=== PATIENT | female | born 2000 | race Caucasian/White ===

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

== ENCOUNTER 2021-03-19 16:23 | Emergency (ER) | payer MEDICAID ==
[2021-03-19 16:43] VITALS: BP 131/76; PULSE 95
--- NOTE | 2021-03-19 17:09 | EDM.PDOC ---
<Jesu Quintana G - Last Filed: 03/19/21 17:04> ED HPI GENERAL MEDICAL PROBLEM - General Chief Complaint: General Stated Complaint: LOWGRADE FEVER, RASH, BOWEL ISSUES Time Seen by Provider: 03/19/21 16:50 Source of Information: Reports: Family, Old Records, RN. Denies: Patient History Limitations: Reports: No Limitations - History of Present Illness INITIAL COMMENTS - FREE TEXT/NARRATIVE: 21 yo female with CP presents with family for a low grade fever, a fine minimal rash, and minimal BM for the past week. Gets tube feeds and has not had any vomiting. Does have a pHx of UTI's. Family has tried glycerin supp lately with a small amt of hard stool. No results with Miralax lately. H Onset: Today Onset Date: 03/19/21 (fever) Duration: Hour(s):, Waxing/Waning Location: Reports: Generalized Quality: Reports: Other (unknown) Severity: Mild Improves with: Reports: None Worsens with: Reports: Other (unsure) Context: Reports: Other (See HPI) Associated Symptoms: Reports: Fever/Chills, Rash, Other (constipation). Denies: Cough, Diaphoresis, Nausea/Vomiting, Shortness of Breath Treatments LAB REP: Reports: Other (see below) (None) - Related Data Allergies Allergy/AdvReac Type Severity Reaction Status Date / Time cefuroxime axetil Allergy Severe Hives Verified 02/09/19 10:23 [From Ceftin] glycopyrrolate [From Robinul] Allergy Severe Renal Verified 02/09/19 10:23 Failure Home Meds: Home Meds Glycerin 0.5 supp RECTAL ASDIRECTED PRN 09/09/13 [History] Lactobacillus Combo No.10 [Probiotic] 1 packet PO DAILY 09/09/13 [History] Lansoprazole [Prevacid] 30 mg PO DAILY 09/09/13 [History] Melatonin/Pyridoxine HCl (B6) [Melatonin-Vit B6 3-10 mg Tab] 3 mg PO BEDTIME 09/09/13 [History] Pediatric Multivit Comb No.20 [Poly-Vitamin] 2 ml PO DAILY 09/09/13 [History] Sodium Chloride [Saline Nasal [place]] 1 spray NASBOTH BID 09/09/13 [History] Valproic Acid [Depakene Syrup] 3.5 ml PO TID 09/09/13 [History] levETIRAcetam [Keppra] 3 ml PO BID 09/09/13 [History] polyethylene glycoL 3350 [MiraLAX] 17 gm PO DAILY 09/09/13 [History] Acetaminophen [Tylenol 160 MG/5 ML Liq] 7.5 ml PO ASDIRECTED PRN 09/03/14 [History] Ibuprofen [Motrin 100 MG/5 ML Susp] 12.5 ml PO Q6HR PRN 12/30/14 [History] Famotidine 1.3 ml PO BID 03/19/21 [History] Past Medical History HEENT History: Reports: Hard of Hearing, Impaired Vision Other HEENT History: prostec eye left Cardiovascular History: Reports: None Respiratory History: Reports: COPD, Other (See Below) Other Respiratory History: Asthma, Gastrointestinal History: Reports: Other (See Below) Other Gastrointestinal History: G-tube placement September 19, 2014 Genitourinary History: Reports: Urinary Incontinence Musculoskeletal History: Reports: Other (See Below) Other Musculoskeletal History: Mild contractures Neurological History: Reports: Seizure Other Neuro History: hydrocephalus Psychiatric History: Reports: Aggressive/Hostile Behaviors Endocrine/Metabolic History: Reports: Obesity/BMI 30+ Other Dermatologic History: Eczema - Infectious Disease History Infectious Disease History: Reports: Influenza - Past Surgical History Head Surgeries/Procedures: Reports: None HEENT Surgical History: Reports: None Other HEENT Surgeries/Procedures: tubes in ears Cardiovascular Surgical History: Reports: Other (See Below) Other Cardiovascular Surgeries/Procedures: [facility] shunt Respiratory Surgical History: Reports: Other (See Below) Other Respiratory Surgeries/Procedures: shunts in the past GI Surgical History: Reports: Nina Fundoplication Other GI Surgeries/Procedures: Nina Female Surgical History: Reports: None Endocrine Surgical History: Reports: None Neurological Surgical History: Reports: None, Other (See Below) Other Neurological Surgeries/Procedures: shunt surgeries in brain Musculoskeletal Surgical History: Reports: None Dermatological Surgical History: Reports: None Social & Family History - Family History Family Medical History: No Pertinent Family History - Tobacco Use Tobacco Use Status *Q: Never Tobacco User - Caffeine Use Caffeine Use: Reports: None ED ROS GENERAL - Review of Systems Review Of Systems: See Below Constitutional: Reports: No Symptoms HEENT: Reports: Rhinitis (minimal clear) Respiratory: Reports: No Symptoms Cardiovascular: Reports: No Symptoms Endocrine: Reports: No Symptoms GI/Abdominal: Reports: Constipation. Denies: Diarrhea, Nausea, Vomiting : Reports: No Symptoms Musculoskeletal: Reports: No Symptoms Skin: Reports: Rash (very faint red rash in upper chest area) Neurological: Reports: No Symptoms ED EXAM, GENERAL - Physical Exam Exam: See Below Exam Limited By: No Limitations General Appearance: Alert, WD/WN, No Apparent Distress Eye Exam: Bilateral Eye: Normal Inspection Ears: Normal External Exam, Normal Canal, Hearing Grossly Normal, Normal TMs Ear Exam: Bilateral Ear: Auricle Normal, Canal Normal Nose: Normal Inspection, No Blood Throat/Mouth: Normal Inspection, Normal Lips, Normal Oropharynx, Normal Voice, No Airway Compromise Head: Atraumatic, Normocephalic Neck: Normal Inspection, Supple, Non-Tender Respiratory/Chest: No Respiratory Distress, Lungs Clear, Normal Breath Sounds, No Accessory Muscle Use Cardiovascular: Regular Rate, Rhythm, No Edema GI/Abdominal: Normal Bowel Sounds, Soft, Non-Tender, No Distention. No: Distended, Tender Extremities: Normal Inspection Neurological: Alert, Oriented, CN II-XII Intact, Normal Cognition, No Motor/Sensory Deficits Psychiatric: Normal Affect, Normal Mood Skin Exam: Warm, Dry, Intact, Normal Color, Rash (fine, pinkish, non-raised rash scattered. Most concentrated to the upper chest. ) Departure - Departure Disposition: Home, Self-Care 01 Clinical Impression: Constipation, slow transit Urinary tract infection Qualifiers: Urinary tract infection type: acute cystitis Hematuria presence: with hematuria Qualified Code(s): N30.01 - Acute cystitis with hematuria - Discharge Information Referrals: Jad Tinoco MD [Primary Care Provider] - Forms: ED Department Discharge Care Plan Goals: The fever is likely due to a urinary tract infection. I am glad to see that the enemas helped to remove some of the excess stool in the colon. You will want to continue to increase fluid intake through the J-tube over the next couple of days to keep the bowels moving. As for the urinary tract infection, we will put her on Bactrim at a dose of 20 mL per J-tube twice daily for 7 days. This has been sent out in the [employer] machine so you may start it today. You continue to give Tylenol for fever. Return to the ED if symptoms are worsening or you have any other concerns. Sepsis Event Note (ED) - Evaluation Sepsis Screening Result: Possible Sepsis Risk <AllieDionicio Ranjit - Last Filed: 03/19/21 18:48> Course - Vital Signs Last Recorded V/S: Last Vital Signs Temp 36.6 C 03/19/21 16:48 Pulse 95 03/19/21 16:48 Resp 16 03/19/21 16:48 BP 131/76 03/19/21 16:48 Pulse Ox 95 03/19/21 16:48 - Orders/Labs/Meds Orders: Active Orders 24 hr Category Date Time Status Enema [RC] ASDIRECTED Care 03/19/21 17:04 Active CULTURE URINE [RM] Stat Lab 03/19/21 18:26 Received Labs: Laboratory Tests 03/19/21 03/19/21 03/19/21 Range/Units 17:27 18:06 18:12 WBC 6.7 (4.5-11.0) K/uL RBC 4.52 (3.30-5.50) M/uL Hgb 14.5 (12.0-15.0) g/dL Hct 42.0 (36.0-48.0) % MCV 93 (80-98) fL MCH 32 H (27-31) pg MCHC 35 (32-36) % Plt Count 187 (150-400) K/uL Urine Color Yellow (YELLOW) Urine Appearance Turbid A (CLEAR) Urine pH 7.5 (5.0-8.0) Ur Specific [place] >= 1.030 (1.008-1.030) Urine Protein 100 H (NEGATIVE) mg/dL Urine Glucose (UA) Negative (NEGATIVE) mg/dL Urine Ketones Negative (NEGATIVE) mg/dL Urine Occult Blood Negative (NEGATIVE) Urine Nitrite Negative (NEGATIVE) Urine Bilirubin Negative (NEGATIVE) Urine Urobilinogen 0.2 (0.2-1.0) EU/dL Ur Leukocyte Esterase Trace H (NEGATIVE) Urine RBC 5-10 H (0-5) Urine WBC 10-20 H (0-5) Ur Epithelial Cells Moderate Amorphous Sediment Few Urine Bacteria Many Urine Mucus Few Urinalysis Comment See note SARS CoV-2 RNA Rapid PEPE Negative - Re-Assessments/Exams Free Text/Narrative Re-Assessment/Exam: 03/19/21 18:45 urinalysis is positive for a UTI with positive leukocyte esterase and 10-20 WBCs with 0-5 RBCs. She had ada pyuria upon doing the mini cath. This is likely the cause of her fever. We will put her on trimethoprim sulfamethoxazole 100 mg - 40 mg / 5 mL at a dose of 20 mL by mouth or G-tube twice daily for 7 days. In addition, patient had excellent results with the enema which has resolved her constipation. At this time she is suitable for discharge home in satisfactory condition. Indications return to the ED were discussed. Departure - Departure Time of Disposition: 18:47 Sepsis Event Note (ED) - Focused Exam Vital Signs: Vital Signs Temp Pulse Resp BP Pulse Ox 03/19/21 16:48 36.6 C 95 16 131/76 95 03/19/21 16:40 36.6 C 95 16 131/76 95
== END 2021-03-19 19:04 | disposition home or self-care (01) ==
LOC: JP.ED 16:23
DX: N30.01 Acute cystitis with hematuria (principal); K59.01 Slow transit constipation; E66.9 Obesity, unspecified; J44.9 Chronic obstructive pulmonary disease, unspecified; Z68.25 Body mass index [BMI] 25.0-25.9, adult; Z79.899 Other long term (current) drug therapy; Z20.822 Contact with and (suspected) exposure to COVID-19
CPT/HCPCS: 36415; 81001; 85027; 87086; 87088; 87186; 99283; U0002

== ENCOUNTER 2022-11-30 12:30 | Emergency (ER) | payer MEDICAID ==
[2022-11-30 12:56] VITALS: BP 139/77; PULSE 59
[2022-11-30 13:04] LABS: BASOPHILS ABSOLUTE AUTO 0.04 K/uL (0.00-0.10); BASOPHILS PERCENT AUTO 0.6 % (0.1-1.3); EOSINOPHILS ABSOLUTE AUTO 0.06 K/uL (0.00-0.40); EOSINOPHILS PERCENT AUTO 0.9 % (0.0-5.4); HEMATOCRIT 43.6 % (34.3-46.0); HEMOGLOBIN 15.4 g/dL (11.2-15.5); IMMATURE GRAN ABSOLUTE AUTO 0.04 K/uL (0.00-0.23); IMMATURE GRAN PERCENT AUTO 0.6 % (0.0-0.7); LYMPHOCYTES ABSOLUTE AUTO 2.65 K/uL (0.8-3.3); LYMPHOCYTES PERCENT AUTO 40.8 % (11.4-47.7); MEAN CORPUSCULAR HEMOGLOBIN 31.9 pg (31.6-35.5); MEAN CORPUSCULAR HGB CONC 35.3 g/dL (31.6-35.5); MEAN CORPUSCULAR VOLUME 90.3 fL (81.4-99.0); MONOCYTES ABSOLUTE AUTO 0.73 K/uL (0.20-0.90); MONOCYTES PERCENT AUTO 11.2 % (3.3-12.6); NEUTROPHILS ABSOLUTE AUTO 2.97 K/uL (1.0-7.6); NEUTROPHILS PERCENT AUTO 45.9 % (40.0-78.1); PLATELET COUNT,PLT 128 K/uL (130-375); RED BLOOD CELL COUNT 4.83 M/uL (3.77-5.24); WHITE BLOOD CELL COUNT,WBC 6.5 K/uL (3.2-11.0)
[2022-11-30 13:29] LABS: APPEARANCE,URINE CLEAR (CLEAR); BILIRUBIN,URINE NEGATIVE (NEGATIVE); COLOR,URINE YELLOW (YELLOW); GLUCOSE,URINE NEGATIVE (NEGATIVE); KETONES,URINE NEGATIVE (NEGATIVE); LEUKOCYTE ESTERASE,URINE NEGATIVE (NEGATIVE); NITRITE,URINE NEGATIVE (NEGATIVE); OCCULT BLOOD,URINE NEGATIVE (NEGATIVE); PROTEIN,URINE NEGATIVE (NEGATIVE); UROBILINOGEN,URINE 0.2 EU/dL (0.2-1.0)
[2022-11-30 13:31] LABS: A/G RATIO 0.7 (1.2-2.2); ALANINE AMINOTRANSFERASE,ALT 3 U/L (12-78); ALBUMIN 3.3 g/dL (3.4-5.0); ALKALINE PHOSPHATASE 206 U/L (46-116); ASPARTATE AMNIOTRANSFERASE,AST 46 U/L (15-37); BILIRUBIN TOTAL 0.3 mg/dL (0.2-1.0); BLOOD UREA NITROGEN,BUN 18 mg/dL (7-18); CALCIUM 9.9 mg/dL (8.5-10.1); CARBON DIOXIDE,CO2 31 mmol/L (21-32); CHLORIDE,CL 96 mmol/L (100-108); CREATININE 0.3 mg/dL (0.6-1.0); EST CRCL DRUG DOSING (CG) 180.55 mL/min; ESTIMATED GFR 155 mL/min (>60); GLUCOSE RANDOM 98 mg/dL (74-106); POTASSIUM,K 4.2 mmol/L (3.6-5.2); PROTEIN TOTAL,TP 8.1 g/dL (6.4-8.2); SODIUM,NA 135 mmol/L (140-148)
[2022-11-30 13:32] LABS: ANION GAP 12.2 mmol/L (5.0-14.0)
[2022-11-30 13:36] LABS: AMORPHOUS SEDIMENT,URINE RARE; BACTERIA,URINE NOT SEEN; EPITHELIAL CELLS,URINE NOT SEEN; MUCUS,URINE NOT SEEN; RBC,URINE 0-5 (0-5); WBC,URINE 0-5 (0-5)
== END 2022-11-30 14:05 | disposition home or self-care (01) ==
LOC: JP.ED 12:30
DX: G80.9 Cerebral palsy, unspecified (principal); J44.9 Chronic obstructive pulmonary disease, unspecified; E66.9 Obesity, unspecified; Z68.23 Body mass index [BMI] 23.0-23.9, adult
CPT/HCPCS: 36415; 70450; 70450-26; 80053; 81001; 83605; 85025; 99284

== ENCOUNTER 2023-04-24 14:15 | Emergency (ER) | payer MEDICAID ==
[2023-04-24] MEDS ORDERED: Lactated Ringers 1,000 ML IV ONE (15:12)
[2023-04-24] MEDS ORDERED: Sodium Chloride 0.9% 10 ML Syringe FLUSH PRN (15:12)
[2023-04-24] MEDS ORDERED: Albuterol 0.083% 2.5 MG/3 ML Neb Soln NEB ONE (15:23)
[2023-04-24 15:36] LABS: HEMATOCRIT 40.7 % (34.3-46.0); HEMOGLOBIN 14.1 g/dL (11.2-15.5); MEAN CORPUSCULAR HEMOGLOBIN 32.7 pg (31.6-35.5); MEAN CORPUSCULAR HGB CONC 34.6 g/dL (31.6-35.5); MEAN CORPUSCULAR VOLUME 94.4 fL (81.4-99.0); PLATELET COUNT,PLT 194 K/uL (130-375); RED BLOOD CELL COUNT 4.31 M/uL (3.77-5.24); WHITE BLOOD CELL COUNT,WBC 8.6 K/uL (3.2-11.0)
[2023-04-24] MEDS ORDERED: Levalbuterol HCl 1.25 MG/3 ML Neb NEB ONE (15:37)
[2023-04-24 15:58] LABS: BAND ABSOLUTE MAN 0.43 K/uL; BAND PERCENT MAN 5 % (5-11); LYMPHOCYTES ABSOLUTE MAN 2.15 K/uL (0.8-3.3); LYMPHOCYTES PERCENT MAN 25 % (24-44); METAMYELOCYTE ABSOLUTE MAN 0.34 K/uL; METAMYELOCYTE PERCENT MAN 4 %; MONOCYTES PERCENT MAN 14 % (2-6); NEUTROPHILS ABSOLUTE MAN 4.47 K/uL (1.0-7.6); SEG NEUTROPHILS PERCENT MAN 52 % (36-66)
[2023-04-24 16:09] LABS: A/G RATIO 0.6 (1.2-2.2); ALANINE AMINOTRANSFERASE,ALT 37 U/L (12-78); ALKALINE PHOSPHATASE 164 U/L (46-116); ANION GAP 11.2 mmol/L (5.0-14.0); ASPARTATE AMNIOTRANSFERASE,AST 34 U/L (15-37); BILIRUBIN TOTAL 0.2 mg/dL (0.2-1.0); BLOOD UREA NITROGEN,BUN 21 mg/dL (7-18); CALCIUM 10.1 mg/dL (8.5-10.1); CARBON DIOXIDE,CO2 28 mmol/L (21-32); CHLORIDE,CL 101 mmol/L (100-108); CREATININE 0.6 mg/dL (0.6-1.0); ESTIMATED GFR 130 mL/min (>60); GLUCOSE RANDOM 119 mg/dL (74-106); POTASSIUM,K 4.3 mmol/L (3.6-5.2); PROTEIN TOTAL,TP 8.1 g/dL (6.4-8.2); SODIUM,NA 140 mmol/L (140-148)
[2023-04-24 17:49] VITALS: BP 122/80; PULSE 95
[2023-04-24 18:00] LABS: CORONAVIRUS COVID-19 NAA NEGATIVE (NEGATIVE); INFLUENZA A NAA NEGATIVE (NEGATIVE); INFLUENZA B NAA NEGATIVE (NEGATIVE); RESPIRATORY SYNCYTIAL VIR NAA NEGATIVE (NEGATIVE)
[2023-04-24] MEDS ORDERED: methylPREDNISolone Sodium Succinate 40 MG/1 ML SDV IVPUSH ONE (18:17)
== END 2023-04-24 19:13 | disposition home or self-care (01) ==
LOC: JP.ED 14:15
DX: J45.41 Moderate persistent asthma with (acute) exacerbation (principal); J44.9 Chronic obstructive pulmonary disease, unspecified; E66.9 Obesity, unspecified; Z68.30 Body mass index [BMI] 30.0-30.9, adult; Z88.1 Allergy status to other antibiotic agents; Z88.8 Allergy status to other drugs, medicaments and biological substances; Z20.822 Contact with and (suspected) exposure to COVID-19; Z79.899 Other long term (current) drug therapy
CPT/HCPCS: 0241U; 36415; 71045; 80053; 83605; 84145; 85025; 86140; 94640; 96374; 99285; J2920; J3490; J7120; J7612